=== PATIENT | male | born 1960 | race Caucasian/White ===

== ENCOUNTER 2017-01-04 14:42 | Emergency (ER) | payer MEDICAID ==
[~2017-01-04] VITALS: Ht 165.1 cm; Wt 96.0 kg
[~2017-01-04 14:42] MED LIST: ALBU1AER INH; ALBU8I INH; ASPI81TA82 PO; BUSP10 PO; CLOP75 PO; FIORIC PO; HYDR-2768 PO; ISOS60 PO; LEVO.025 PO; LISI-360 PO; MOBI7.5T PO; NAPR220T95 PO; PRAV40 PO; PRED20 PO; PROT40TA PO; VALI10TA PO; Z.0.OXYGEN INH; Z.0.OXYGENDME NC; [UNRECOGNIZED DRUG - OTHER] RIGHT EYE
[2017-01-04 15:19] VITALS: BP 202/114; PULSE 96; RESP 21; TEMP 97.9; O2SAT 99
[2017-01-04 15:27] VITALS: BP 161/95; PULSE 97; RESP 21; TEMP 97.9; O2SAT 99
[2017-01-04 15:28] VITALS: BP 161/95; PULSE 97; RESP 21; TEMP 97.9; O2SAT 99
[2017-01-04 15:29] VITALS: BP 164/102; PULSE 93; RESP 21; TEMP 97.9; O2SAT 99
[2017-01-04] MEDS ORDERED: METOCLOPRAMIDE HCL 10 MG/2 ML VIAL IVP ONE (15:30)
[2017-01-04] MEDS ORDERED: SODIUM CHLORIDE 0.9% FLUSH 10 ML FLUSH IVF PRN (15:30)
[2017-01-04] MEDS ORDERED: diphenhydrAMINE HCL 50 MG/ML VIAL IVP ONE (15:30)
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
[2017-01-04] MEDS ORDERED: PRAV40TA2 PO (15:52)
[2017-01-04] MEDS ORDERED: PANT40TA3 PO (15:52)
[2017-01-04] MEDS ORDERED: HYDR25TA5 PO (15:52)
[2017-01-04] MEDS ORDERED: FERR325T8 PO (15:52)
[2017-01-04] MEDS ORDERED: BUSP10TA PO (15:52)
[2017-01-04] MEDS ORDERED: PLAV75TA29 PO (15:52)
[2017-01-04 15:55] LABS: AUTOMATED NEUTROPHIL # 7.7 TH/MM3 (1.8-7.7); BASOPHIL # 0.1 TH/MM3 (0-0.2); BASOPHIL % 0.6 % (0.0-2.0); EOSINOPHIL % 0.2 % (0.0-4.0); HEMATOCRIT 45.7 % (39.0-51.0); HEMO FLAGS DIFF FINAL; LYMPHOCYTE # 2.2 TH/MM3 (1.0-4.8); MEAN CELL VOLUME 87.8 FL (80.0-100.0); MEAN CORPUSCULAR HEMOGLOBIN 29.6 PG (27.0-34.0); MEAN CORPUSCULAR HGB CONC 33.7 % (32.0-36.0); MONO % 6.4 % (0.0-8.0); NEUT % 71.8 % (16.0-70.0); PLATELET COUNT 351 TH/MM3 (150-450); RED BLOOD COUNT 5.21 MIL/MM3 (4.50-5.90); RED CELL DISTRIBUTION WIDTH 14.2 % (11.6-17.2); WHITE BLOOD COUNT 10.7 TH/MM3 (4.0-11.0)
[2017-01-04 16:04] LABS: APTT (PATIENT) 25.5 SEC (24.3-30.1); PROTHROMBIN TIME - PATIENT 11.1 SEC (9.8-11.6)
[2017-01-04 16:05] LABS: BICARBONATE 30.2 MEQ/L (21.0-32.0)
[2017-01-04] MEDS ORDERED: ERYTOIN10 EACH EYE (16:38)
[2017-01-04 17:06] VITALS: BP 142/101
== END 2017-01-04 17:08 | disposition home or self-care (01) ==
LOC: NEPC 14:42
DX: R51 Headache (principal); H10.33 Unspecified acute conjunctivitis, bilateral; I10 Essential (primary) hypertension; F17.290 Nicotine dependence, other tobacco product, uncomplicated; F10.10 Alcohol abuse, uncomplicated; Z86.73 Personal history of transient ischemic attack (TIA), and cerebral infarction without residual deficits
CPT/HCPCS: 70450; 80048; 85025; 85610; 85730; 96374; 96375; 99285; J1200; J2765